=== PATIENT | female | born 1965 | race Caucasian/White ===

== ENCOUNTER 2020-08-18 13:11 | Outpatient (CLI) | payer OTHER | END 2020-08-18 16:05 | disposition home or self-care (01) | LOC: LAB 13:11 | DX: Z20.828 Contact with and (suspected) exposure to other viral communicable diseases (principal) ==

== ENCOUNTER 2020-08-25 08:18 | Outpatient (CLI) | payer OTHER | END 2020-08-25 13:53 | disposition home or self-care (01) | LOC: LAB 08:18 | DX: U07.1 COVID-19 (principal) ==